=== PATIENT | male | born 1975 | race African-American/Black ===

== ENCOUNTER → 2016-08-01 | Outpatient (CLI) | payer OTHER ==
--- NOTE | 2016-08-07 07:46 | SLEEPHOME ---
DATE OF PROCEDURE: 08/01/2016 ORDERED BY: Adelia Zhong NP Diagnostic home sleep testing was performed due to concern for the obstructive sleep apnea syndrome in this patient with a history of excessive somnolence and nonrestorative sleep. For testing, a NOX-T3 respiratory monitoring device was used. Continuous record was made of pulse, oxygen saturation, airflow, chest and abdominal strain, airflow, and body position. 9 hours and 59 minutes of data were reviewed. Of these, 7 hours and 28 minutes were marked as time in bed. During the interval marked time in bed, there were 116 respiratory events identified of 10 seconds in duration or greater for a respiratory event index of 15.5. The events were primarily obstructive. The patient dislodged the pulse oximetry probe and therefore, pulse rate and saturation data are not available. Testing was performed in both the supine and non-supine positions. IMPRESSION: Abnormal home sleep testing with repetitive respiratory events and a respiratory event index of 15.5 is consistent with the obstructive sleep apnea syndrome. RECOMMENDATION: Given the limited data, repeat testing may be prudent. If, however, clinical symptoms suggest referral for a formal in-laboratory testing and pressure titration should be considered.
== END ==
LOC: M SLEEP HO 12:14
PROVIDERS: ATTEND Nurse Practitioner Adult Health
DX: G47.30 Sleep apnea, unspecified (principal)